=== PATIENT | female | born 1965 | race African-American/Black ===

== ENCOUNTER 2018-12-10 14:00 | Emergency (ER) | payer OTHER ==
[2018-12-10] MEDS ORDERED: Albuterol/Ipratropium NEB.SOL* Albuterol 2.5 MG/Ipratropium 0.5 MG 3 ML INH ONE (14:17)
--- NOTE | 2018-12-10 14:20 | UC ---
Throat Pain/Nasal Luke HPI - HPI Summary HPI Summary: 53-year-old female who has been sick for 1 day with sore throat and cough. 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 She denies any fever or chills, she's not a smoker. She got her flu shot on December 03. - History of Current Complaint Stated Complaint: SORE THROAT Time Seen by Provider: 12/10/18 14:09 Hx Obtained From: Patient ?: No Onset/Duration: Gradual Onset Severity: Mild Cough: Productive - Occasional productive cough of whitish sputum. Associated Signs & Symptoms: Positive: Nasal Discharge - Allergies/Home Medications Allergies/Adverse Reactions: Allergies Allergy/AdvReac Type Severity Reaction Status Date / Time acetaminophen Allergy Vomiting Verified 12/10/18 14:27 [From [employer] [facility]-[facility]] aspirin Allergy Rash Verified 12/10/18 14:27 fentanyl Allergy Anaphylatic Verified 12/10/18 14:27 Shock iodine Allergy Rash Verified 12/10/18 14:27 propoxyphene Allergy Vomiting Verified 12/10/18 14:27 [From [employer]t-N] Home Medications: Home Medications Albuterol 2.5MG/3ML (0.083%)* [Ventolin 2.5 MG/3 ML NEB.ERASTO*] 2.5 mg INH Q4H 02/16 [History Confirmed 12/10/18] Albuterol HFA INHALER* [Ventolin HFA Inhaler*] 2 puff INH Q4H PRN 12/10/18 [ History Confirmed 12/10/18] Amlodipine Besylate [Norvasc] 2.5 mg PO DAILY 12/10/18 [History Confirmed ] Atorvastatin* [Lipitor*] 20 mg PO 1700 12/10/18 [History Confirmed 12/10/18] Budesonide/Formote 80/4.5(NF) [Symbicort 80/4.5 (NF)] 1 puff INH BID 12/10/18 [ History Confirmed 12/10/18] Clopidogrel Bisulfate [Plavix] 75 mg PO DAILY 12/10/18 [History Confirmed ] Metoprolol Succinate 100 mg PO DAILY 12/10/18 [History Confirmed 12/10/18] Ramipril 20 mg PO DAILY 12/10/18 [History Confirmed 12/10/18] Sodium Bicarbonate 650 mg PO BID 12/10/18 [History Confirmed 12/10/18] cloNIDine 0.1 MG PATCH* [Klkgnsyo-Ywc-9 0.1 mg Patch*] 1 patch .SEE ORDER WEEKLY 12/10/18 [History Confirmed 12/10/18] PMH/Surg Hx/FS Hx/Imm Hx Previously Healthy: Yes Review of Systems All Other Systems Reviewed And Are Negative: Yes ENT: Positive: Sore Throat, Nasal Discharge Respiratory: Positive: Cough - Mildly tight cough.. Patient has been using her albuterol inhaler. Is Patient Immunocompromised?: No Physical Exam Triage Information Reviewed: Yes Appearance: Well-Appearing, No Pain Distress, Well-Nourished Vital Signs Reviewed: Yes Eyes: Positive: Conjunctiva Clear ENT: Positive: Pharyngeal erythema, Nasal congestion, Nasal drainage, TMs normal , Uvula midline Neck: Positive: Supple, Nontender, No Lymphadenopathy Respiratory: Positive: No respiratory distress, No accessory muscle use, Wheezing - Very mild expiratory wheeze with forced expiration. Cardiovascular: Positive: RRR, No Murmur, Pulses Normal, Brisk Capillary Refill Musculoskeletal Exam: Normal Neurological Exam: Normal Psychological Exam: Normal Skin Exam: Normal Throat Pain/Nasal Course/Dx - Course Course Of Treatment: Rapid strep: Negative DuoNeb treatment: The patient felt much better and like she was moving more air after the breathing treatment. I refilled her albuterol inhaler, I'm going to put her on prednisone taper, she wanted something for her throat pain so I'm giving her Magic mouthwash and benzonatate for her cough. She is to follow-up with a primary care provider in 4-5 days if no improvement. - Differential Dx/Diagnosis Provider Diagnosis: Bronchitis, Pharyngitis Discharge ED - Sign-Out/Discharge Documenting (check all that apply): Patient Departure All imaging exams completed and their final reports reviewed: No Studies - Discharge Plan Condition: Good Disposition: HOME Prescriptions: Albuterol HFA INHALER* [Ventolin HFA Inhaler*] 2 puff INH Q4H PRN 5 Days #1 mdi PRN Reason: Wheezing Benzonatate CAP* [Tessalon 100 MG CAP*] 100 mg PO TID PRN #21 cap PRN Reason: Cough Magic Mouth Was-RAMON/MAAL/LIDO* 5 ml SWISH SPIT QID PRN #80 ml PRN Reason: Sore Throat predniSONE TAB* [Deltasone 10 MG TAB*] 10 mg PO DAILY 12 Days #30 tab Patient Education Materials: Pharyngitis (ED), Acute Bronchitis (ED) Referrals: [facility] SHER,Chai Alvarez [Primary Care Provider] - Additional Instructions: Use the Magic mouthwash gargle and spit, use her albuterol inhaler 2 puffs every 4-6 hours as needed for wheezing or tight cough, take the prednisone with food, follow-up with your primary care provider in 4-5 days if no improvement. - Billing Disposition and Condition Condition: GOOD Disposition: Home - Attestation Statements Provider Attestation: I was available for consult. This patient was seen by the DIEGO. The patient was not presented to, seen by, or examined by me. -Henok
[2018-12-10 14:26] VITALS: BP 127/82
== END 2018-12-10 15:10 | disposition home or self-care (01) ==
LOC: UCCORT 14:00
DX: J02.9 Acute pharyngitis, unspecified (principal); J40 Bronchitis, not specified as acute or chronic; Z88.8 Allergy status to other drugs, medicaments and biological substances; Z88.4 Allergy status to anesthetic agent; Z91.018 Allergy to other foods
CPT/HCPCS: 87651; 99202; A9270-GY; G0463

== ENCOUNTER 2018-12-27 12:25 | Emergency (ER) | payer OTHER ==
--- OUTSIDE RECORDS SUMMARY | 2018-12-27 12:58 | XMS REPORT | Continuity of Care Document ---
:1965 External Reference #:[id number] Author Name Yulia Aylaa MD Address [address] [place] [address] Care Team Providers Name Role Phone Chai Henning MD - Family Care Team Information Manager Style Medicine Problems Description No Information Available Social History Type Date Description Comments Sex Unknown Tobacco Use Start: Unknown Never Smoked Cigarettes ETOH Use Never used alcohol Recreational Drug Use Never Used Drugs Tobacco Use Start: Unknown Patient has never smoked Smoking Status Reviewed: 11/07/18 Patient has never smoked Allergies, Adverse Reactions, Alerts Active Allergies Reaction Severity Comments Date Fentanyl 04/11/2018 Shellfish-derived Products 04/11/2018 Aspirin 04/11/2018 Topical Iodine 04/11/2018 Propoxyphene severe vomiting 07/19/2018 Medications Active Medications SIG Qnty Indications Ordering Date Provider Noble 1 tab by mouth every 21tabs Yulia Ayala 11/07/2018 5-325mg 8 hours as needed for MD Tablets pain Clonidine Apply 1 Patch To The Unknown Skin Transdermally 0.1mg/24HR Patches Once Weekly Weekly Alprazolam TK 1 T PO bid Pra Or Unknown 0.25mg Insomnia. MDD 2 PO 30 Tablets Days Loratadine 1 by mouth every day Unknown 10mg Tablets Plavix 1 by mouth every day Unknown 75mg Tablets Lipitor 1 by mouth every day Unknown 20mg Tablets Amlodipine Besylate Chai Louise, MD Ced 2.5mg Tablets Ramipril 1 daily Unknown 10mg Capsules Metoprolol 1 daily Unknown Succinate ER 100mg Tablets ER 24HR Meclizine HCL TK 1 T Once A Day Unknown 25mg prn Tablets History Medications Percocet 1 by mouth every 7tabs Yulia Ayala, 07/26/2018 - 5-325mg 24 hours as MD 11/07/2018 Tablets needed for pain Percocet 1 by mouth once 7tabs S83.232D Yulia Ayala, 07/19/2018 - 5-325mg per day for pain 11/07/2018 Tablets as needed Medications Administered in Office Medication SIG Qnty Indications Ordering Provider Date Depomedrol 40mg/1cc Yulia Ayala MD 11/07/2018 (methylprednisolone acetate) Injection Methylprednisolone acetate Yulia Ayala MD 04/11/2018 (Depomedrol) 80mg injection Injection Immunizations Description No Information Available Vital Signs Date Vital Result Comment 11/07/2018 3:46pm BP Systolic 128 mmHg BP Diastolic 86 mmHg Body Temperature 98.1 F Heart Rate 86 /min Height 63 inches 5'3" Weight 192.00 lb BMI (Body Mass Index) 34.0 kg/m2 BSA (Body Surface Area) 1.90 m2 Widen body weight in kilograms 52 kg O2 % BldC Oximetry 99 % 07/19/2018 1:26pm BP Systolic Sitting Left Arm 139 mmHg BP Diastolic Sitting Left Arm 87 mmHg Body Temperature 97.8 F Heart Rate 84 /min Weight 190.00 lb O2 % BldC Oximetry 99 % Results Description No Information Available Procedures Description No Information Available Medical Devices Description No Information Available Encounters Type Date Location Provider Dx Diagnosis Office Visit 07/19/2018 [facility]opa[facility] Office Yulia Ayala, S83.232D Complex tear of 1:30p MD marcy james, current injury, l knee, subs M17.12 Unilateral primary osteoarthritis, left knee Office Visit 05/11/2018 2:30p Orthopa[facility] Office Yulia Ayala, S83.232D Complex tear MD of marcy james, current injury, l knee, subs M17.12 Unilateral primary osteoarthritis, left knee Assessments Date Code Description Provider 07/19/2018 S83.232D Complex tear of medial meniscus, Yulia Chaudhary MD injury, left knee, 07/19/2018 M17.12 Unilateral primary osteoarthritis, left knee Yulia Ayala MD 05/11/2018 S83.232D Complex tear of medial meniscus, Yulia Chaudhary MD injury, left knee, 05/11/2018 M17.12 Unilateral primary osteoarthritis, left knee Yulia Ayala MD Plan of Treatment Future Appointment(s):11/22/2018 2:15 pm - Yulia Ayala MD at [id number]/07/2018 - Yulia Ayala MDNew Medication:Noble 5-325 mgNew Xrays:RMP , Knee, LT, Ap, lat & sunrise (3 view), Ordered: 11/07/18MRI, Lower Joint Ext Any W/O Contrast, Ordered: 11/07/18New Therapy:Physical/Occupational Therapy Functional Status Description No Information Available Mental Status Description No Information Available Referrals Refer to Reason for Referral Status Appt Date [facility] epidural injections, lumbar Patient Declined 00/ and cervical [address] [place] [address] [phone]
[2018-12-27 13:35] VITALS: BP 133/91
--- NOTE | 2018-12-27 13:52 | UC ---
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 States has had cough > 1 week. PT had been eval at And dx with bronchitis. Pt was given albuterol and mdi. States sx have progressed. congestion, cough with yellow-green sputum, fatigue. pt reports tactile temp. No rash + sinus congestion, + PND Pt without tobacco use, no vaping ho LL lobe lung surgery s/p collapse meds reviewed chart reviewed - History of Current Complaint Chief Complaint: UCRespiratory Stated Complaint: COUGH Hx Obtained From: Patient, Medical Records Hx Last Menstrual Period: JUNE 2018. Pain Intensity: 4 - Allergies/Home Medications Allergies/Adverse Reactions: Allergies Allergy/AdvReac Type Severity Reaction Status Date / Time aspirin Allergy Rash Verified 12/27/18 13:24 fentanyl Allergy Anaphylatic Verified 12/27/18 13:24 Shock iodine Allergy Rash Verified 12/27/18 13:24 propoxyphene Allergy Vomiting Verified 12/27/18 13:24 [From [facility]] PMH/Surg Hx/FS Hx/Imm Hx Previously Healthy: Yes Cardiovascular History: Hypertension - Surgical History Surgical History: Yes Surgery Procedure, Year, and Place: left shoulder rotater cuff ,. CHEST TUBE - Family History Known Family History: Positive: Non-Contributory - Social History Occupation: Employed Full-time Lives: With Family Alcohol Use: None Substance Use Type: None Smoking Status (MU): Never Smoked Tobacco Review of Systems All Other Systems Reviewed And Are Negative: Yes Constitutional: Positive: Fever - tactile ENT: Positive: Nasal Discharge, Sinus Congestion, Sinus Pain/Tenderness Respiratory: Positive: Shortness Of Breath, Cough Physical Exam - Summary Physical Exam Summary: Vital Signs Reviewed: Yes A+Ox3, no distress, coarse cough Eyes: Conjunctiva Clear, XIAO. 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 Skin: Positive: no rash, no ecchymosis Triage Information Reviewed: Yes Vital Signs: Initial Vital Signs Temp 98.3 F 12/27/18 13:26 Pulse 89 12/27/18 13:26 Resp 20 12/27/18 13:26 BP 133/91 12/27/18 13:26 Pulse Ox 100 12/27/18 13:26 Diagnostics - Radiology No standard instances Radiology Interpretation Completed By: Radiologist - Patient Name: KEV MOSES Medical Record#: [id number] Ordering Physician: Letitia Lama MD Acct.#: [id number] : 1965 Age: 53 Sex: F Location: [facility] Exam Date: 12/27/18 140 ADM Status: REG ER Order Information: CHEST PA & LAT 2 VWS Accession Number : [id number] CPT: 61603 HISTORY: cough, left base crackle COMPARISONS: None relevant available at the time of dictation. VIEWS: 4: Frontal dual-energy and lateral views of the chest. FINDINGS: CARDIOMEDIASTINAL SILHOUETTE: The cardiomediastinal silhouette is normal. HIRAM: The hiram are normal. PLEURA: The costophrenic angles are sharp. No pleural abnormalities are noted. LUNG PARENCHYMA: The lungs are clear. ABDOMEN: The upper abdomen is clear. There is no subphrenic gas. BONES AND SOFT TISSUES: No bone or soft tissue abnormalities are noted. OTHER: None. IMPRESSION: NO ACTIVE CARDIOPULMONARY DISEASE. <Electronically signed by Karlos Clancy MD in [place]> 12/27/181422 Dictated By: Karlos Clancy MD Dictated Date/Time: 1422 Transcribed Date/Time: 12/27/181422 Copy to: CC:Chai Louise MD; Letitia Lama MD Imaging - [facility] [address] [address] ph ([phone]) ph ([phone]) ph ([phone]) This report is only to be considered final once signed by the Provider(s) as displayed in the "<Electronically Signed by >" field (s). Absence of a signature indicates the report is in a draft status and still needs to be finalized. In the event this document was created by someone other than the signing Provider, the individual initiating the document will be listed in the "Entered by:" or "Dictated by:" chowdary. 1 of 1 Respiratory Course/Dx - Course Course Of Treatment: Pt presents with ongoing congestion, cough, PND x 1 week. PT with yellow/green sputum VSS pt with sinus congestion, PND, scant fluid right ear + coarse cough and scattered wheeze will check CXR anticiapte MDI refill, flonase, abx secretion precaution OTC med pt comfortable and in agreement with plan - Differential Dx/Diagnosis Provider Diagnosis: Acute bronchitis Discharge ED - Sign-Out/Discharge Documenting (check all that apply): Patient Departure All imaging exams completed and their final reports reviewed: Yes - Discharge Plan Condition: Stable Disposition: HOME Prescriptions: Albuterol HFA INHALER* [Ventolin HFA Inhaler*] 2 puff INH Q4H PRN #1 mdi PRN Reason: wheeze DOXYcycline CAP(*) [DOXYcycline 100MG CAP(*)] 100 mg PO BID #20 cap Fluconazole [Diflucan 150 MG (NF)] 150 mg PO ONCE PRN #1 tab PRN Reason: vaginal yeast infection Fluticasone NASAL SPRAY 50MCG* [Flonase NASAL SPRAY 50MCG*] 1 spray BOTH NARES DAILY #1 btl Inhaler, Assist Devices [Aerochamber Mv] 1 each PO Q4HR #1 spacer Patient Education Materials: Acute Bronchitis (ED), Rhinosinusitis (ED) Referrals: [facility] SHER,Chai Alvarez [Primary Care Provider] - Additional Instructions: - Take antibiotics exactly as prescribed until gone -These infections are spread by oral secretions. Do not share eating or drinking utensils. Frequent hand washing is important. Clean items that may get your secretions on them such as cell phones, ipads, computer mouse, television remotes. Once you have been on antbiotics for 2 days, change your pillowcase and your toothbrush -Use your albuterol puffer - 2 puffs ever 4 hours for the next 2 days - then as needed - use nasal spray as prescribed -Stay well hydrated - avoid excess caffeine and all alcohol -humidify the air in the room where you sleep - Okay to take over the counter cough and decongestant medication -Contact your doctor to arrange a follow-up appointment this week. Call your doctor, return here or go to the emergency department with any questions or concerns - Billing Disposition and Condition Condition: STABLE Disposition: Home
== END 2018-12-27 14:35 | disposition home or self-care (01) ==
LOC: UCCORT 12:25
DX: J20.9 Acute bronchitis, unspecified (principal); I10 Essential (primary) hypertension; Z88.6 Allergy status to analgesic agent; Z88.5 Allergy status to narcotic agent; Z91.048 Other nonmedicinal substance allergy status
CPT/HCPCS: 71046; 99212; G0463